=== PATIENT | female | born 1945 | race Caucasian/White ===

== ENCOUNTER → 2019-09-06 10:02 | Outpatient (BNVA) | payer MEDICARE, SELFPAY | PROVIDERS: Family Provider Family Medicine; PCP Family Medicine; Visit Provider Specialist | DX: G20 Parkinson's disease (principal); G47.10 Hypersomnia, unspecified; F32.9 Major depressive disorder, single episode, unspecified; Z87.891 Personal history of nicotine dependence | CPT/HCPCS: 96116; 99214 ==

== ENCOUNTER 2019-10-27 20:00 | Outpatient (CLI) | payer MEDICARE, SELFPAY | END 2019-10-27 20:01 | disposition home or self-care (01) | LOC: SLEEP 10-28 08:56 | PROVIDERS: Family Provider Family Medicine; PCP Family Medicine; Visit Provider Specialist | DX: G47.33 Obstructive sleep apnea (adult) (pediatric); G47.10 Hypersomnia, unspecified; R06.83 Snoring; R53.83 Other fatigue | CPT/HCPCS: 95810 ==

== ENCOUNTER → 2020-01-18 13:24 | Outpatient (BNVA) | payer MEDICARE, SELFPAY | PROVIDERS: Family Provider Family Medicine; PCP Family Medicine; Visit Provider Specialist | DX: G20 Parkinson's disease (principal) | CPT/HCPCS: 99214 ==

== ENCOUNTER 2020-04-12 20:00 | Outpatient (CLI) | payer MEDICARE, SELFPAY | END 2020-04-12 20:01 | disposition home or self-care (01) | LOC: SLEEP 04-13 09:22 | PROVIDERS: Family Provider Family Medicine; PCP Family Medicine; Visit Provider Specialist | DX: G47.33 Obstructive sleep apnea (adult) (pediatric) (principal) | CPT/HCPCS: 95811 ==

== ENCOUNTER → 2020-07-11 09:33 | Outpatient (BNVA) | payer MEDICARE, SELFPAY | PROVIDERS: Family Provider Family Medicine; PCP Family Medicine; Visit Provider Specialist | DX: G20 Parkinson's disease (principal); Z87.891 Personal history of nicotine dependence | CPT/HCPCS: 99213 ==

== ENCOUNTER → 2020-12-06 09:56 | Outpatient (BNVA) | payer MEDICARE, SELFPAY | PROVIDERS: Family Provider Family Medicine; PCP Family Medicine; Referring Provider Family Medicine; Visit Provider Specialist | DX: G20 Parkinson's disease (principal); R56.9 Unspecified convulsions; Z87.891 Personal history of nicotine dependence | CPT/HCPCS: 95816 ==

== ENCOUNTER → 2021-01-01 11:33 | Outpatient (BNVA) | payer MEDICARE, SELFPAY | PROVIDERS: Family Provider Family Medicine; PCP Family Medicine; Visit Provider Specialist | DX: G20 Parkinson's disease (principal) | CPT/HCPCS: 99214 ==

== ENCOUNTER 2021-02-18 12:40 | Outpatient (CLI) | payer MEDICARE, SELFPAY ==
--- NOTE | 2021-02-18 12:45 | USCV_ITS ---
Zahraa Quiroga Age: 75 Gender: F : 1945 Exam Date: 02/18/2021 13:06 Ordering Phys: Glendy Godoy MD Technologist: Jennie Vasquez Exam Location: [facility] – [place] Indication: CEREBRAL INFARCTION Risk Factors: Previous Vascular Surgery: Right Brachial BP: / Left Brachial BP: / Right Left Velocity (cm/s) Spectral Plaque Velocity (cm/s) Spectral Plaque Syst/Diast Broadening Syst/Diast Broadening 78.60/ 9.40 Prox CCA 100.00/ 10.30 50.00/ 7.20 Mid CCA 79.50 / 12.80 45.40/ 9.20 Distal CCA 70.90 / 14.50 106.00/16.20 Prox ICA 70.10 / 16.20 111.40/14.30 Mid ICA 106.90/ 17.60 118.00/23.20 Distal ICA 92.60 / 22.10 65.10 ECA 75.20 1.50 ICA/CCA 1.07 Antegrade Vertebral Antegrade 54.40/ 8.50 cm/s 83.80/ 9.90 cm/s Tri Subclavian Tri 118.3 143.3 0 0 FINDINGS Comparison: none available. Diffuse bilateral scattered calcified plaque and intimal thickening throughout the common carotid arteries and extending through the bifurcation. Mild turbulence with no stenosis bilateral carotid arteries. Antegrade vertebral arteries. CONCLUSIONS Bilateral ICA stenosis less than 50%. Mild diffuse carotid atherosclerosis. Dr. Marilee Sutton DO (Electronically Signed) Final Date: 18 February 2021 13:32 S
== END 2021-02-18 12:41 | disposition home or self-care (01) ==
PROVIDERS: PCP Family Medicine; Visit Provider Family Medicine
DX: I63.9 Cerebral infarction, unspecified (principal); I65.23 Occlusion and stenosis of bilateral carotid arteries
CPT/HCPCS: 93880

== ENCOUNTER → 2021-12-31 14:36 | Outpatient (BNVA) | payer MEDICARE, SELFPAY | PROVIDERS: PCP Family Medicine; Visit Provider Specialist | DX: G20 Parkinson's disease (principal) | CPT/HCPCS: 99214 ==